=== PATIENT | female | born 1985 | race Caucasian/White ===

== ENCOUNTER 2021-05-13 06:38 | Emergency (ER) | payer OTHER, SELFPAY ==
[2021-05-13 06:40] VITALS: BP 103/73; PULSE 118; RESP 18; TEMP 36.8; O2SAT 98; BMI 25.7
--- NOTE | 2021-05-13 07:18 | PC.NURSE ---
PT STATED SHE FELT DIZZY AFTER IV PLACEMENT; ASKED IF SIGHT OF BLOOD MADE HER FEEL LIGHTHEADED PT RESPONDED YES; DR RODRIGUEZ ENTERED THE ROOM PATIENT HAD A VASOVAGAL WHILE IN BED; REPOSITIONED PT IN SLIGHT TRENDELENBERG POSITION APPLIED COOL WET TOWEL TO FOREHEAD; PT WOKE ON HER OWN; CONTINUED TO MONITOR PT UNTIL BACK TO BASELINE.. DENIES SYMPTOMS AT THIS TIME.
--- NOTE | 2021-05-13 07:18 | W.ED.ABDPA2 ---
HPI - Abdominal Pain General: Chief Complaint: Abdominal Pain Stated Complaint: UPPER RIGHT SEVERE ABD PAIN Time Seen by Provider: 05/13/21 06:51 History of Present Illness: HPI narrative: 36-year-old female female presents emergency room planing of right lower quadrant pain off and on for the last week. She denies any fever she has had nausea and decreased appetite. She denies any dysuria urgency or frequency she notes that when she eats that seems to make it worse if she avoids eating it seems to get better she tried various [id number] H2 blockers and PPIs with only minimal relief. MD elicited complaint: abdominal pain Pertinent past history: none Onset (ago): minute(s) Location: RUQ Severity: moderate Quality: cramping Radiation: back Exacerbating factors: eating Relieving factors: nothing Associated Symptoms: Reports anorexia, bloating, GI cramping, nausea, poor appetite and vomiting; Denies belching, change in bowel habits, change in stool character, chills, coffee ground emesis, constipation, diarrhea, dyspepsia, dysuria, excessive flatus, fever(s), heartburn, hematochezia, hematuria, hematemesis, fecal incontinence, loose stools, melena and syncope Review of Systems Const: Denies: fever(s) or chills ENMT: Denies: throat pain, ear or mastoid pain, nasal discharge or nasal congestion Card: Denies: syncope Resp: Denies: dyspnea, productive cough or non-productive cough GI: Reports: nausea, vomiting, bloating and GI cramping; Denies: hematemesis, coffee ground emesis, heartburn, diarrhea, constipation, belching, excessive flatus, fecal incontinence, change in bowel habits, change in stool character, hematochezia or melena : Denies: dysuria or hematuria Skin/Breast: Denies: rash or pruritus PFSH ED PFSH: Social History Smoking and tobacco status: never smoked Second hand smoke exposure: No Alcohol intake: never Desire information about alcohol rehabilitation?: No Desire information about substance/drug rehabilitation?: No Physical Exam Const: COMMON NORMALS: no acute distress GENERAL APPEARANCE: cooperative and comfortable ORIENTATION/CONSCIOUSNESS: Yes awake, Yes oriented to person, Yes oriented to place and Yes oriented to time HENMT: COMMON NORMALS: normocephalic, atraumatic and hearing grossly normal bilaterally HEAD & SCALP: normocephalic and atraumatic Neck/C-Spine: COMMON NORMALS: no JVD Resp: COMMON NORMALS: normal respiratory effort, No retractions, No use of accessory muscles and clear to auscultation bilaterally AUSCULTATION: clear to auscultation bilaterally Cardio: COMMON NORMALS: no JVD, regular rate, regular rhythm and No murmurs present (Cardio) RATE: regular rate RHYTHM: regular rhythm GI: COMMON NORMALS: No hepatosplenomegaly present AUSCULTATION: Yes normoactive bowel sounds PALPATION: Yes Tenderness to palpation present (GI) Details: RLQ, No Guarding due to palpation present (GI) and Yes No hepatosplenomegaly present Extremity: COMMON NORMALS: normal to inspection, capillary refill normal, no clubbing, cyanosis or edema, no calf tenderness and no pedal edema Neuro: SENSORIUM/ORIENTATION: Yes oriented to person, Yes oriented to place and Yes oriented to time Skin: COMMON NORMALS: no rashes or lesions noted GENERAL SKIN EXAM: no rashes or lesions noted Course Vital Signs: Vital signs: Vital Signs Temperature 98.2 F 05/13/21 06:40 Pulse Rate 74 05/13/21 10:00 Respiratory Rate 15 05/13/21 10:00 Blood Pressure 111/58 05/13/21 10:00 Pulse Oximetry 99 05/13/21 10:00 MDM - Abdominal Pain MDM Narrative: Medical decision making narrative: Ultrasound gallbladder and CT are negative. Suspect patient may be having some biliary dyskinesia we will set her up for a HIDA scan. She does have a little bit of urinary tract infection will put her on Macrobid however follow-up with primary care when completed. Lab Data: Labs: Lab Results 05/13/21 05/13/21 05/13/21 Range/Units 07:15 07:15 07:36 WBC 8.5 (4.0-10.0) 10^3/ uL RBC 5.06 (4.1-5.3) 10^6/u L Hgb 14.9 (11.5-15.3) g/dL Hct 44.4 (37.0-47.0) % MCV 87.7 (81-99) fl MCH 29.4 (28.0-34.0) pg MCHC 33.6 (30.0-36.0) g/dL RDW 12.3 (12.1-15.1) % Plt Count 246 (130-400) 10^3/c mm MPV 11.8 H (7.4-10.4) fL Neut % (Auto) 79.2 % Lymph % (Auto) 11.2 % Carolina % (Auto) 7.5 % Eos % (Auto) 1.1 % Baso % (Auto) 0.6 % Neut # (Auto) 6.75 (1.8-7.7) 10^3/u L Lymph # (Auto) 1.0 (0.8-4.8) 10^3/u L Carolina # (Auto) 0.6 (0.2-0.9) 10^3/u L Eos # (Auto) 0.1 (0.0-0.8) 10^3/u L Baso # (Auto) 0.1 (0.0-0.1) 10^3/u L Nucleated RBC % (a uto) 0 % Nucleated RBCs # 0.0 /100WBC Sodium 138 (136-145) mmol/L Potassium 3.5 (3.5-5.1) mmol/L Chloride 103 (98-107) mmol/L Carbon Dioxide 24 (22-29) mmol/L Anion Gap 14.5 (5-19) BUN 11 (6-20) mg/dL Creatinine 0.5 (0.5-0.9) mg/dL GFR Calculation 138.8 H (90-130) mL/min Glucose 100 (65-115) mg/dL Calculated Osmolal ity 285 (285-295) mOsm/k g Calcium 9.0 (8.5-10.5) mg/dL Total Bilirubin 0.9 (0.15-1.2) mg/dL AST 13 (0-32) U/L ALT 9 (0-33) U/L Alkaline Phosphata se 64 (35-105) IU/L Total Protein 7.4 (6.6-8.7) g/dL Albumin 4.4 (3.5-5.2) g/dL Globulin 3.0 (1.3-4.6) g/dL Lipase 21 (13-60) U/L Urine Color Dark yellow (Yellow) Urine Appearance Hazy A (CLEAR) Urine pH 5 (5-7) Ur Specific Gravit y 1.015 (1.005-1.030) Urine Protein 1+ H (Negative) Urine Glucose (UA) Norm (Normal) Urine Ketones 2+ H (Negative) Urine Blood 3+ H (Negative) Urine Nitrate Negative (Negative) Urine Bilirubin Neg (Negative) Urine Urobilinogen Norm (Negative) mg/dL Ur Leukocyte Katalina ase 2+ H (Negative) Urine RBC Too numerous to c nt H (0-2) /hpf Urine WBC >100 H (0-5) /hpf Ur Squamous Epith Cells 25-40 H (0-5) /hpf Amorphous Sediment Not Reportable Urine Bacteria 1+ H (NONE) /hpf Discharge Plan Discharge Patient Disposition: Home Clinical Impression: Biliary dyskinesia, Cystitis Condition: Stable Prescriptions: New hydrocodone-acetaminophen 5-325 mg tablet 1 tab PO Q6H PRN (Reason: pain) Qty: 20 RF: 0 Zofran 4 mg tablet 4 mg PO Q6H PRN (Reason: nausea and vomiting) Qty: 15 RF: 0 Macrobid 100 mg capsule 100 mg PO BID 7 Days Qty: 14 RF: 0 No Action multivitamin Tablet 1 tab PO DAILY RF: 0 berberine-herbal comb no.18 Capsule 1 cap PO DAILY RF: 0 turmeric 400 mg Capsule 400 mg PO DAILY RF: 0 Discharge Orders: Discharge ED (Routine); Ordered 05/13/21 Ordered By: Nehemiah Hsu Referrals: Allan Morgan MD [Primary Care Provider] - Discharge Diet: Usual diet Discharge Activity: Resume usual activity Patient Instructions: Opioid Safety Coding Level of Care Code ED Plant Operations Manager for Chg Fwd Exam Comprehensive
--- NOTE | 2021-05-13 07:19 | US_ITS ---
WS: [id number] ULTRASOUND ABDOMEN LIMITED CLINICAL INFORMATION: abd pain COMPARISON: None. FINDINGS: Liver Size: Mild hepatomegaly Craniocaudal length: 16.8 cm. Echogenicity: Normal. Surface nodularity: None. Mass (size and location): None. Bile ducts Intrahepatic ducts: Normal. Common bile duct diameter: 0.3 cm. Gallbladder Normal. Gallstones: None. Gallbladder sludge: None. Gallbladder wall thickening: None. Pericholecystic fluid: None. Sonographic Garcia sign: Absent. Pancreas Normal as visualized. Right kidney: Normal. Hydronephrosis: None. Size: 11.1 cm x 4.7 cm x 4.7 cm. Abdominal aorta and IVC Visualized portions are normal. Ascites: None. US/US gall bladder 35715 IMPRESSION: 1. Mild hepatomegaly. 2. Normal gallbladder. 3. Normal common bile duct. 4. No hydronephrosis in right kidney.
[2021-05-13 07:23] VITALS: BP 111/58; PULSE 91; RESP 15; O2SAT 95
[2021-05-13] MEDS: ondansetron 2 mg/ML SDV 2 mL 4 MG IVP (07:28)
[2021-05-13] MEDS: sodium chloride 0.9% 1,000 ML 999 ML IV (07:30)
[2021-05-13 07:31] LABS: Basophils # 0.1 10^3/uL (0.0-0.1); Basophils % 0.6 %; Eosinophils # 0.1 10^3/uL (0.0-0.8); Eosinophils % 1.1 %; Hematocrit 44.4 % (37.0-47.0); Hemoglobin 14.9 g/dL (11.5-15.3); Lymphocytes % 11.2 %; Mean Corpuscular HGB Conc 33.6 g/dL (30.0-36.0); Mean Corpuscular Hemoglobin 29.4 pg (28.0-34.0); Mean Corpuscular Volume 87.7 fl (81-99); Mean Platelet Volume 11.8 fL (7.4-10.4); Monocytes # 0.6 10^3/uL (0.2-0.9); Monocytes % 7.5 %; Neutrophils # 6.75 10^3/uL (1.8-7.7); Neutrophils % 79.2 %; Nucleated Red Blood Cells % 0 %; Platelet Count 246 10^3/cmm (130-400); Red Blood Count 5.06 10^6/uL (4.1-5.3); Red Cell Distribution Width 12.3 % (12.1-15.1); White Blood Count 8.5 10^3/uL (4.0-10.0)
--- NOTE | 2021-05-13 07:32 | PC.NURSE ---
PT HAD ONE EPISODE OF VOMITING OF YELLOW BILE LIQUID WITH NO FOOD PARTICLES
[2021-05-13 07:39] VITALS: RESP 15; O2SAT 97
[2021-05-13] MEDS: morphine 4 mg/mL SDV 1 mL 6 MG IVP (07:39)
[2021-05-13 07:49] LABS: Alanine Aminotransferase 9 U/L (0-33); Albumin Level 4.4 g/dL (3.5-5.2); Alkaline Phosphatase 64 IU/L (35-105); Anion Gap 14.5 (5-19); Aspartate Amino Transferase 13 U/L (0-32); Blood Urea Nitrogen 11 mg/dL (6-20); Carbon Dioxide 24 mmol/L (22-29); Chloride 103 mmol/L (98-107); Creatinine Clr Calc Pharmacy 151.5656; Glomerular Filtration Rate 138.8 mL/min (90-130); Glucose 100 mg/dL (65-115); Lipase 21 U/L (13-60); Osmolality Calculated 285 mOsm/kg (285-295); Potassium 3.5 mmol/L (3.5-5.1); Sodium 138 mmol/L (136-145); Total Bilirubin 0.9 mg/dL (0.15-1.2); Total Protein 7.4 g/dL (6.6-8.7)
[2021-05-13 08:04] LABS: Add Urine Microscopic? YES; Bilirubin Urine Neg (Negative); Blood Urine 3+ (Negative); Glucose Urine UA Norm (Normal); Ketones Urine 2+ (Negative); Leukocyte Esterase Urine 2+ (Negative); Nitrate Urine Negative (Negative); Protein Urine 1+ (Negative); Specific Gravity, Urine 1.015 (1.005-1.030); Urine Appearance Hazy (CLEAR); Urine Color Dark Yellow (Yellow); Urobilinogen Urine Norm (Negative); pH Urine 5 (5-7)
[2021-05-13 08:06] LABS: RBC Urine TOO NUMEROUS TO CNT /hpf (0-2); Squamous Epithelial Cell Urine 25-40 /hpf (0-5); WBC Urine >100 /hpf (0-5)
[2021-05-13 08:07] LABS: Add Urine Culture? No; Bacteria Urine 1+ /hpf
--- NOTE | 2021-05-13 08:10 | CT_ITS ---
WS: [id number] CT ABDOMEN PELVIS TECHNIQUE: Noncontrast CT of the abdomen and pelvis with coronal and sagittal reformatted images. CLINICAL INFORMATION: flank pain COMPARISON: None. DLP: 874.[address] scans at [facility] use at least one of these dose optimization techniques: automat ed exposure control; mA and/or kV adjustment per patient size (includes targeted exams where dose is matched to clinical indication); or iterative reconstruction. FINDINGS: No hydronephrosis in either kidney. Adrenal glands are normal. No obstructing renal or ureteral calcu li bilaterally. Bilateral tubal ligation. Bibasilar atelectasis. Noncontrast liver and spleen are normal. Mild hepatomegaly. Normal GE junction . Normal caliber abdominal aorta. No periaortic or retroperitoneal lymphadenopathy. Normal appendix i n the right lower quadrant. Bulky lobulated uterus likely due to fibroids. Small amount of free fluid in the pelvis. Pelvis can b e further evaluated with ultrasound. Bilateral multifollicular ovaries bilaterally. Normal sigmoid co dimas. No evidence of high-grade small or large bowel obstruction. CT/CT kidney stone [id number] IMPRESSION: 1. No obstructing renal or ureteral calculi. No hydronephrosis. 2. Normal appendix in the right lower quadrant. No evidence of acute appendici tis. 3. Bulky lobulated noncontrast uterus likely due to fibroids. Recommend furthe r evaluation with pelvic ultrasound. 4. Small amount of free fluid in the pelvis. Multifollicular ovaries bilateral ly. 5. Slight bibasilar atelectasis.
[2021-05-13 08:24] VITALS: RESP 18; O2SAT 100
[2021-05-13] MEDS: cefTRIAXone 1,000 MG in sodium chloride 0.9% (plus) 50 ML 100 MG IV (08:24)
[2021-05-13] MEDS: morphine 4 mg/mL SDV 1 mL IVP (08:24)
[2021-05-13 08:25] VITALS: BP 111/58; PULSE 82; RESP 20; O2SAT 99
[2021-05-13 10:00] VITALS: BP 111/58; PULSE 74; RESP 15; O2SAT 99
--- NOTE | 2021-05-14 08:33 | DCPLANNER ---
manager compliance had message to schedule an outpatient HIDA scan for patient. manager compliance also had message to schedule a follow up appointment for patient with general surgery. manager compliance faxed signed order for HIDA scan to centralized scheduling, who will call patient with appointment information. manager compliance also emailed patients information to both Padmaja and Jennifer at [facility] General Surgery. Patients information will be printed and reviewed. Clinic will call patient with appointment information.
--- NOTE | 2021-05-15 10:29 | DCPLANNER ---
Patient has a follow up appointment scheduled for Thursday, May 20, 2021 at 8:[address] Shaikh. Clinic will call patient with appointment information.
--- NOTE | 2021-05-21 07:38 | DCPLANNER ---
Addendum entered by Queenie Temple 10/08/21 18:16: Patient had a HIDA scan scheduled - patient did attend Patient had a follow up appointment scheduled with general surgery - patient did attend appointment. Original Note: Patient has a HIDA scan scheduled for Thursday, June 17, 2021 at 8:00.
== END 2021-05-13 11:28 | disposition home or self-care (01) ==
PROVIDERS: Emergency Provider Family Medicine; PCP Family Medicine
DX: K82.8 Other specified diseases of gallbladder (principal); N30.90 Cystitis, unspecified without hematuria
CPT/HCPCS: 74176; 76705; 80053; 81001; 83690; 85025; 96365; 96375; 96376; 99284; J0696; J2270; J2405; J7030

== ENCOUNTER 2021-06-02 09:37 | Outpatient (CLI) | payer OTHER, SELFPAY ==
--- NOTE | 2021-06-02 10:00 | NM_ITS ---
WS: [id number] NM hepatobiliary w phar* [id number] REASON FOR EXAM: K82.8 - Other specified diseases of gallbladder TECHNICAL: 5.4 mCi technetium 99m Mebrofenin injected intravenously. Sequential imaging at 5 minute i ntervals out to 60 minutes. Repeat imaging of the gallbladder nuclide activity 1 hour postprandial. FINDINGS: Normal hepatic phase. Timely appearance of the radionuclide in the biliary system with prompt filling of the gallbladder and passage into the small bowel. The injection fraction at 62 minutes was 88%. NM/NM hepatobiliary w phar* [id number] IMPRESSION: Normal study.
== END 2021-06-02 09:38 | disposition home or self-care (01) ==
LOC: NM 09:39
PROVIDERS: PCP Family Medicine; Visit Provider Family Medicine
DX: K82.8 Other specified diseases of gallbladder (principal)
CPT/HCPCS: 78227; A9537

== ENCOUNTER → 2021-06-09 08:20 | Outpatient (BNVA) | payer OTHER, SELFPAY | PROVIDERS: PCP Family Medicine; Visit Provider Surgery | DX: Z20.822 Contact with and (suspected) exposure to COVID-19 (principal) | CPT/HCPCS: 87635 ==

== ENCOUNTER 2021-06-16 10:26 | Day surgery (SDC) | payer OTHER, SELFPAY ==
[2021-06-13 13:37] VITALS: BMI 25.7
[2021-06-16] VITALS (11 sets, daily range): BP systolic 102–116; BP diastolic 67–88; PULSE 62–91; RESP 9–22; TEMP 36.5–36.9; O2SAT 95–100
--- NOTE | 2021-06-16 10:57 | W.PM.OPSUD ---
Surgery/Procedure H&P Update DATE OF PROCEDURE: June 16, 2021 DATE H&P PERFORMED: 06/06/21 H&P UPDATE INFORMATION: I have reviewed H&P completed within last 30 days, I have examined patient prior to procedure and No changes to prior documentation PREOP DIAGNOSIS: chronic cholecystitis PLANNED PROCEDURE: Operation Date: 06/16/21 12:00 Proposed Procedures p Laparoscopic Cholecystectomy 84248 88755 R10.11 K29.70(Not Applicable) - Juno Shaikh MD s EGD(Not Applicable) - Juno Shaikh MD
[2021-06-16] MEDS: sodium chloride 0.9% 1,000 ML 30 ML IV (11:02)
[2021-06-16 11:03] LABS: OR HCG Qualitative Urine Negative (Negative)
--- NOTE | 2021-06-16 11:17 | ANES.PREANE2 ---
Pre-Anesthetic Assessment Pre-Anesthetic Assessment: Height/Weight: Height 1.65 m Weight 70.307 kg Temp Pulse Resp BP Pulse Ox 98.5 F 79 18 116/75 95 06/16/21 10:45 06/16/21 10:45 06/16/21 10:45 06/16/21 10:45 06/16/21 10:45 Preop Diagnosis: chronic cholecystitis Proposed Procedure: Operation Date: 06/16/21 12:00 Proposed Procedures p Laparoscopic Cholecystectomy 12705 70763 R10.11 K29.70(Not Applicable) - Juno Shaikh MD s EGD(Not Applicable) - Juno Shaikh MD Was Beta Momo taken within 24 hours: N/A Was Clonidine taken within 24 hours: N/A Last intake: Intake Last Liquid Date 06/15/21 Last Liquid Time 19:30 Last Solid Date 06/15/21 Last Solid Time 19:30 Exam: Pre-Anes Outpt Exam: alert, oriented x 3 and clear to auscultation bilaterally Airway: Submandibular: WNL Cervical ROM: WNL MP: 1 History/ROS: No significant complaints Pulmonary: Pulmonary: None reported CV/HEM: CV/HEM: None reported : : None reported Hepatic: Hepatic: None reported GI: GI: None reported Metabolic: Metabolic: None reported Musc/skel: Musc/skel: None reported Neuropsych: Neuropsych: None reported Anesthetic Plan: ASA status: 2 Anesthesia: Anesthesia Evaluation and General Risk of > 500 ml blood loss (7ml/kg in children): No Meds/Allergies Current Medications: Current Medications Generic Name Dose Route Start Last Admin Trade Name Freq PRN Reason Stop Dose Admin Sodium Chloride 1,000 mls @ 30 ml s/hr 06/16/21 10:45 06/16/21 11:02 Sodium Chloride 0.9% IV 06/17/21 10:44 30 mls/hr .Q24H ETHAN Administration PFSH Anesthesia PFSH: Medical History Endometriosis Surgical History (Updated 06/16/21 @ 11:03 by Juno Shaikh MD) H/O esophagogastroduodenoscopy (06/16/21) H/O tubal ligation History of dilatation and curettage 2016 History of laparoscopy 2017 Status post laparoscopic cholecystectomy (06/16/21) Social History Second hand smoke exposure: No Alcohol intake: never Desire information about alcohol rehabilitation?: No Desire information about substance/drug rehabilitation?: No Female Reproductive History: Date of last menstrual period: 06/10/21 Data Anesthesia Other Labs: Laboratory Results - last 48 hr 06/16/21 10:43 Urine HCG, Qual Negative Cardiac Studies: No Data to Display
[2021-06-16] MEDS: levofloxacin-dextrose 5 % 500 MG/100 ML PREMIX 100 MG IV (12:23)
--- NOTE | 2021-06-16 12:57 | PM.OP ---
Operative Report Date of procedure: June 16, 2021 Pre-op Diagnosis: chronic cholecystitis Post-op Diagnosis: 1. Chronic cholecystitis 2. Normal EGD Procedure Done: 1. Esophagogastroduodenoscopy without biopsy 2. Laparoscopic cholecystectomy Specimens removed/disposition: Gallbladder Surgeon: Juno Shaikh Anesthesia: General Condition: stable Disposition: PACU Procedure: The patient was taken to the operating room and intubated under general anesthesia and a bite block was placed. A gastroscope was introduced and advanced up to second portion of the duodenum and slowly withdrawn. Duodenum second portion: Normal Duodenal bulb: Normal Stomach Fundus: Normal body: Normal Antrum: Normal Pylorus: Normal Esophagus GE junction: Normal at 40 cm Rest of esophagus: Normal The patient was taken to the operating room and was intubated under general anesthesia. After the antibiotic had been administered, the abdomen was prepped and draped in a sterile manner. Using a #15 blade, a 1 centimeter infraumbilical curvilinear incision was made and using an open Robson technique the peritoneal cavity was entered. A 10 millimeter port was placed and 15 millimeters of pneumoperitoneum was created. A 10 millimeter, 30 degrees scope was then introduced. Three 5 millimeter ports were placed in the epigastric, midclavicular and the anterior axillary line two fingerbreadths below the costal margin on the right side under the direct visualization. Ratcheted forceps were introduced into the lateral most port and was used to retract the fundus of the gallbladder cephalad and using forceps the infundibulum of the gallbladder was retracted laterally. Using L-hook cautery the peritoneum overlying the Calot's triangle was opened medially and laterally until the cystic duct and the cystic artery were skeletonized. Dissection was carried along the body of the gallbladder and after ensuring critical view of safety, 4 clips applied on the cystic duct and cut leaving, 3 clips on the remaining portion of the duct. The cystic artery was small and was divided with electrocautery. The rest of the gallbladder was dissected off the liver using L-hook cautery. There was no bleeding or bile leaking noted from the gallbladder fossa and the clips appeared to be in place. An EndoCatch bag was introduced to remove the gallbladder. All the ports were removed under direct visualization and there was no bleeding noted from the port sites. The fascia of the umbilicus was closed using [id number] 0 Vicryl sutures and the subcutaneous tissue was approximated using 3-0 Vicryl sutures. The skin at all four ports were closed using 4-0 Monocryl and Dermabond. A total of 10 millimeters of 0.5% Marcaine was infiltrated around the port sites. The patient was stable throughout the procedure.
--- NOTE | 2021-06-16 13:21 | SUR.PHASEI ---
1312 RECIEVED PT TO PACU SLEEPY WITH GOOD RESP NOTED ORAL AIRWAY IN PLACE, ABD SOFT WITH 4 SITES D/I 1323 PT AWAKES AND ORAL AIRWAY OUT PT ON RA SHE HAS A HX OF NAUSEA AFTER SURGERY, SEE PRE MEDS, VSS PT DENIES PAIN AND NAUSEA FOR NOW.
[2021-06-16] MEDS: fentaNYL 50 mcg/mL INJ 2mL IVP (13:27)
--- NOTE | 2021-06-16 13:32 | SUR.PHASEI ---
PT ALERT ASKING PERTINENT QUESTIONS TAKING OCC ICE CHIPS DENIES NAUSEA BUT DOES C/O OF PAIN SEE MED GIVEN PT STATES PAIN IS BETTER AND DOZING OFF AND ON NOW.
[2021-06-16] MEDS: HYDROcodone-acetaminophen 5-325 mg Tablet 1 TAB PO (14:13)
--- NOTE | 2021-06-16 16:36 | ANE.PACU2 ---
Inpatient post-anesthesia follow up: Airway intact: Yes Vital signs: Temperature 98.5 F Pulse Rate 86 Respiratory Rate 18 Blood Pressure 114/77 Pulse Oximetry 99 Oxygen Delivery Me thod Room Air Oxygen Flow Rate 6 Fraction of Inspir ed Oxygen Hydration adequate: Yes Nausea and vomiting: No Pain level: 3 Mental status: Baseline
== END 2021-06-16 14:41 | disposition home or self-care (01) ==
PROVIDERS: Anesthesiology; PCP Family Medicine; Visit Provider Surgery
PROC: 0FT44ZZ Resection of Gallbladder, Percutaneous Endoscopic Approach (ICD-10-PCS; CPT 47562; principal; 2021-06-16 11:55)
PROC: 0DJ08ZZ Inspection of Upper Intestinal Tract, Via Natural or Artificial Opening Endoscopic (ICD-10-PCS; CPT 43235; 2021-06-16 11:55)
DX: K81.1 Chronic cholecystitis (principal); K29.70 Gastritis, unspecified, without bleeding
CPT/HCPCS: 43235; 47562; 81025; 84703; 88304; J1100; J1956; J2405; J2704; J2710; J3010; J3490; J7030

== ENCOUNTER → 2023-07-20 12:21 | Outpatient (BNVA) | payer OTHER, SELFPAY | PROVIDERS: PCP Family Medicine; Visit Provider Family Medicine | DX: Z01.419 Encounter for gynecological examination (general) (routine) without abnormal findings | CPT/HCPCS: 87624 ==

== ENCOUNTER → 2023-07-26 08:33 | Outpatient (BNVA) | payer OTHER, SELFPAY | PROVIDERS: PCP Family Medicine; Visit Provider Family Medicine | DX: R53.81 Other malaise (principal); R53.83 Other fatigue; Z51.81 Encounter for therapeutic drug level monitoring; E55.9 Vitamin D deficiency, unspecified; Z13.220 Encounter for screening for lipoid disorders; R00.2 Palpitations; Z01.419 Encounter for gynecological examination (general) (routine) without abnormal findings | CPT/HCPCS: 80053; 80061; 82306; 83735; 84439; 84443; 85025 ==

== ENCOUNTER 2023-11-16 10:26 | Outpatient (CLI) | payer OTHER, SELFPAY ==
--- NOTE | 2023-11-16 10:28 | XR_ITS ---
WS: [id number] Exam: XR shoulder RT min 2V* [id number] Date/Time of Exam: 11/16/2023 10:39 AM Reason For Exam: Right shoulder pain No fracture or dislocation. Soft tissue calcification along the greater tuberosity of the humerus may indicate calcific tendinitis or bursitis. IMPRESSION: 1. No fracture. 2. Soft tissue calcification along the greater tuberosity of the humerus suggesting calcific tendinit is and/or bursitis.
== END 2023-11-16 10:27 | disposition home or self-care (01) ==
LOC: RAD 10:26
PROVIDERS: PCP Family Medicine; Visit Provider Family Medicine
DX: M25.811 Other specified joint disorders, right shoulder (principal); M25.511 Pain in right shoulder
CPT/HCPCS: 73030

== ENCOUNTER 2024-08-23 12:30 | Outpatient (CLI) | payer OTHER, SELFPAY ==
--- NOTE | 2024-08-23 12:30 | MM_ITS ---
WS: [id number] BILATERAL 3D TOMOSYNTHESIS DIGITAL SCREENING MAMMOGRAPHY WITH CAD CLINICAL INFORMATION: Screening HISTORY: Screening mammogram. No current complaints. COMPARISON: Baseline TECHNIQUE: Bilateral CC and MLO views. FINDINGS: The breasts are composed of heterogeneous fibroglandular density tissue, which can limit the detectio n of small underlying mass lesions. No suspicious mass, asymmetry, calcifications, or architectural d istortion. No evidence of malignancy. Incidental calcifications bilaterally. MM/MM [facility] tomosynthesis [id number] IMPRESSION: DENSITY: The breasts are heterogeneously dense, which may obscure small masses. BI-RADS: 2 - Benign FOLLOW UP: 1 Year Follow-up Recommend return to annual screening mammography.
== END 2024-08-23 12:36 | disposition home or self-care (01) ==
PROVIDERS: PCP Family Medicine; Visit Provider Family Medicine
DX: Z12.31 Encounter for screening mammogram for malignant neoplasm of breast (principal); R92.333 Mammographic heterogeneous density, bilateral breasts; R92.1 Mammographic calcification found on diagnostic imaging of breast
CPT/HCPCS: 77063; 77067

== ENCOUNTER → 2024-08-24 07:41 | Outpatient (BNVA) | payer OTHER, SELFPAY | PROVIDERS: PCP Family Medicine; Visit Provider Family Medicine | DX: E53.8 Deficiency of other specified B group vitamins (principal); Z51.81 Encounter for therapeutic drug level monitoring; R53.81 Other malaise; R53.83 Other fatigue; E55.9 Vitamin D deficiency, unspecified; Z13.220 Encounter for screening for lipoid disorders | CPT/HCPCS: 80053; 80061; 82306; 82607; 84443; 85025; 86141 ==